=== PATIENT | male | born 1960 | race Caucasian/White ===

== ENCOUNTER 2018-06-29 12:48 | Emergency (ER) | payer BC ==
[~2018-06-29] VITALS: Ht 175.3 cm; Wt 88.5 kg
[~2018-06-29 12:48] MED LIST: ALEVE220 MG PO; AMOXICILLIN 50500 MG PO; AUGMENTIN PO; BENADRYL25 MG PO; DILAUDID 2 MG TA2 MG PO; GUMMI BEAR MUL1 EAC1 PO; LITE COAT ASPI325 MG PO; LOMOTIL TABLET1 EACH PO; NORCO 5-325 TA1 EACH PO; PERCOCET PO; ROXANOL T PO; TRAMADOL 50 MG50 MG PO; UNICOMPLEX M TA1 TA1 PO
[2018-06-29] MEDS ORDERED: PRILOSEC 10MG C10 MG PO (13:10)
[2018-06-29 13:40] LABS: URINE BILIRUBIN NEGATIVE (Negative); URINE BLOOD NEGATIVE (Negative); URINE CLARITY CLEAR; URINE COLOR YELLOW; URINE GLUCOSE-RANDOM* NEGATIVE (Negative); URINE KETONES NEGATIVE (Negative); URINE LEUKOCYTES-REFLEX NEGATIVE (Negative); URINE NITRITE-REFLEX NEGATIVE (Negative); URINE PROTEIN (DIPSTICK) NEGATIVE (Negative); URINE UROBILINOGEN 0.2 E.U./dl (0.2-1.0)
[2018-06-29 13:51] LABS: ABSOLUTE NEUTROPHILS 7.3 thou/uL (1.4-8.2); HEMATOCRIT 49.5 % (42.0-52.0); HEMOGLOBIN 17.3 gm/dL (14.0-18.0); LYMPHOCYTES 10.2 % (24.0-44.0); MCH 31.3 pg (26.0-34.0); MCV 89.5 fL (80.0-100.0); MONOCYTES 7.3 % (1.0-8.0); POLYS 80.5 % (36.0-66.0); RBC 5.54 mil/uL (4.50-6.00); RDW 13.1 % (10.5-14.5); WBC 9.1 thou/uL (4.0-11.0)
[2018-06-29 13:52] LABS: PLATELET COUNT 171 thou/uL (150-400)
[2018-06-29 13:59] LABS: CALCIUM 9.2 mg/dL (8.5-10.1); CREATININE 0.9 mg/dL (0.7-1.3); POTASSIUM 4.7 mmol/L (3.5-5.1)
[2018-06-29 14:05] LABS: ALBUMIN 4.2 g/dL (3.4-5.0); TOTAL BILIRUBIN 0.6 mg/dL (<0.1-1.0); TOTAL PROTEIN 7.9 g/dL (6.4-8.2)
[2018-06-29 15:31] VITALS: BP 140/93
== END 2018-06-29 15:32 | disposition home or self-care (01) ==
LOC: ER 12:48
PROVIDERS: Nurse Practitioner Family
DX: R53.83 Other fatigue (principal); R25.2 Cramp and spasm; R51 Headache; R53.1 Weakness; R10.9 Unspecified abdominal pain

== ENCOUNTER 2018-08-26 09:40 | Emergency (ER) | payer BC ==
[~2018-08-26] VITALS: Ht 172.7 cm; Wt 95.3 kg
[~2018-08-26 09:40] MED LIST changes: +PRILOSEC 10MG C10 MG PO
[2018-08-26 10:05] LABS: ABSOLUTE NEUTROPHILS 7.9 thou/uL (1.4-8.2); EOSINOPHILS 1.1 % (0.0-3.0); HEMATOCRIT 50.1 % (42.0-52.0); HEMOGLOBIN 17.4 gm/dL (14.0-18.0); LYMPHOCYTES 11.3 % (24.0-44.0); MCH 31.4 pg (26.0-34.0); MCHC 34.7 g/dL (28.0-37.0); MCV 90.3 fL (80.0-100.0); MONOCYTES 6.6 % (1.0-8.0); PLATELET COUNT 263 thou/uL (150-400); RBC 5.55 mil/uL (4.50-6.00); WBC 9.9 thou/uL (4.0-11.0)
[2018-08-26 10:13] LABS: CALCIUM 9.2 mg/dL (8.5-10.1); POTASSIUM 4.2 mmol/L (3.5-5.1)
[2018-08-26 10:19] LABS: ALBUMIN 4.2 g/dL (3.4-5.0); TOTAL BILIRUBIN 0.6 mg/dL (<0.1-1.0); TOTAL PROTEIN 7.9 g/dL (6.4-8.2)
--- NOTE | 2018-08-26 10:54 | EKG ---
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 : 1960 Requested By: Ruben Mcekon Order Number: [id number] MD: Pete Peng Measurements Intervals [place] Rate: 97 P: 74 DC: 166 QRS: -27 QRSD: 106 T: 33 QT: 360 QTc: 458 Interpretive Statements Sinus rhythm Borderline left axis deviation RSR' in V1 or V2, right VCD Compared to ECG 07/12/2017 12:27:44 No significant change was found Electronically Signed On 08-26-2018 10:54:03 [employer] by Pete Peng [email or web address] <ELECTRONICALLY SIGNED> By: Pete Peng MD, [facility] 08/26/18 1054 0950 9 Pete Peng MD, FACC /EPI
[2018-08-26] MEDS ORDERED: PROTONIX40 MG PO (11:45)
[2018-08-26] MEDS ORDERED: CARAFATE1 GM PO (11:45)
[2018-08-26 12:49] VITALS: BP 123/86
== END 2018-08-26 12:53 | disposition home or self-care (01) ==
LOC: ER 09:40
PROVIDERS: Emergency Medicine
DX: K29.70 Gastritis, unspecified, without bleeding (principal); Z90.49 Acquired absence of other specified parts of digestive tract; F17.210 Nicotine dependence, cigarettes, uncomplicated; Z88.1 Allergy status to other antibiotic agents; Z88.5 Allergy status to narcotic agent

== ENCOUNTER 2018-11-19 10:30 | Emergency (ER) | payer BC ==
[~2018-11-19] VITALS: Ht 175.3 cm; Wt 95.3 kg
[~2018-11-19 10:30] MED LIST changes: +CARAFATE1 GM PO; +PROTONIX40 MG PO
[2018-11-19 11:12] LABS: BASOPHILS 1.3 % (0.0-2.0); EOSINOPHILS 1.2 % (0.0-3.0); HEMATOCRIT 48.1 % (42.0-52.0); LYMPHOCYTES 13.7 % (24.0-44.0); MCH 31.4 pg (26.0-34.0); MCHC 35.3 g/dL (28.0-37.0); MCV 88.9 fL (80.0-100.0); MONOCYTES 6.7 % (1.0-8.0); PLATELET COUNT 258 thou/uL (150-400); POLYS 77.1 % (36.0-66.0); RBC 5.41 mil/uL (4.50-6.00); RDW 12.8 % (10.5-14.5); WBC 6.4 thou/uL (4.0-11.0)
[2018-11-19 11:20] LABS: CALCIUM 9.3 mg/dL (8.5-10.1); CREATININE 0.8 mg/dL (0.7-1.3); POTASSIUM 4.3 mmol/L (3.5-5.1)
[2018-11-19 11:25] LABS: ALBUMIN 4.4 g/dL (3.4-5.0); TOTAL BILIRUBIN 0.5 mg/dL (<0.1-1.0); TOTAL PROTEIN 7.8 g/dL (6.4-8.2)
[2018-11-19 12:25] LABS: URINE BILIRUBIN NEGATIVE (Negative); URINE BLOOD NEGATIVE (Negative); URINE CLARITY CLEAR; URINE COLOR YELLOW; URINE GLUCOSE-RANDOM* NEGATIVE (Negative); URINE KETONES NEGATIVE (Negative); URINE LEUKOCYTES-REFLEX NEGATIVE (Negative); URINE NITRITE-REFLEX NEGATIVE (Negative); URINE PROTEIN (DIPSTICK) NEGATIVE (Negative); URINE SPECIFIC GRAVITY <= 1.005 (1.005-1.035); URINE UROBILINOGEN 0.2 E.U./dl (0.2-1.0)
[2018-11-19] MEDS ORDERED: ULTRAM 50MG TAB50 MG PO (12:42)
[2018-11-19] MEDS ORDERED: ONDANSETRON HCL4 M2 PO (12:42)
[2018-11-19] MEDS ORDERED: NORCO 10-325 T1 EACH PO (13:00)
[2018-11-19 13:11] VITALS: BP 145/92
== END 2018-11-19 13:30 | disposition home or self-care (01) ==
LOC: ER 10:30
PROVIDERS: Physician Assistant
DX: R10.32 Left lower quadrant pain (principal); Z90.49 Acquired absence of other specified parts of digestive tract; F17.210 Nicotine dependence, cigarettes, uncomplicated; Z88.1 Allergy status to other antibiotic agents; Z88.5 Allergy status to narcotic agent

== ENCOUNTER 2019-03-15 11:28 | Emergency (ER) | payer BC ==
[~2019-03-15] VITALS: Ht 172.7 cm; Wt 90.7 kg
[~2019-03-15 11:28] MED LIST changes: +NORCO 10-325 T1 EACH PO; +ONDANSETRON HCL4 M2 PO; +ULTRAM 50MG TAB50 MG PO
[2019-03-15 12:04] LABS: HEMATOCRIT 45.4 % (42.0-52.0); HEMOGLOBIN 15.7 gm/dL (14.0-18.0); MCH 31.2 pg (26.0-34.0); MCHC 34.5 g/dL (28.0-37.0); MCV 90.2 fL (80.0-100.0); RBC 5.03 mil/uL (4.50-6.00)
[2019-03-15 12:09] LABS: ANION GAP 10 mmol/L (7-16); BUN 12 mg/dL (7-18); CALCIUM 9.1 mg/dL (8.5-10.1); CHLORIDE 102 mmol/L (98-107); CO2 26 mmol/L (21-32); CREATININE 0.9 mg/dL (0.7-1.3); GLUCOSE 94 mg/dL (74-106); POTASSIUM 3.6 mmol/L (3.5-5.1); SODIUM 138 mmol/L (136-145)
[2019-03-15 12:17] LABS: TROPONIN-I <0.06 ng/mL (<0.06)
[2019-03-15 12:59] VITALS: BP 155/87
== END 2019-03-15 13:00 | disposition home or self-care (01) ==
LOC: ER 11:28
PROVIDERS: Physician Assistant
DX: R00.0 Tachycardia, unspecified (principal); T40.2X5A Adverse effect of other opioids, initial encounter; F17.210 Nicotine dependence, cigarettes, uncomplicated; Z90.49 Acquired absence of other specified parts of digestive tract; Z88.1 Allergy status to other antibiotic agents; Z88.8 Allergy status to other drugs, medicaments and biological substances; Y92.89 Other specified places as the place of occurrence of the external cause

== ENCOUNTER → 2020-01-30 | Outpatient (CLI) | payer BC | LOC: CAT 12:21 → LABMALL 12:21 | PROVIDERS: ATTEND Family Medicine | DX: R91.1 Solitary pulmonary nodule (principal); R05 Cough ==

== ENCOUNTER → 2020-01-30 | Outpatient (CLI) | payer OTHER | LOC: CAT 13:05 | PROVIDERS: ATTEND Family Medicine | DX: R05 Cough (principal); R91.1 Solitary pulmonary nodule; Z90.49 Acquired absence of other specified parts of digestive tract ==

== ENCOUNTER 2020-05-05 09:27 | Inpatient (IN) | payer BC ==
[~2020-05-05] VITALS: Ht 175.3 cm; Wt 95.7 kg
[2020-05-05 09:30] VITALS: BP 138/94
[2020-05-05 10:31] LABS: HEMATOCRIT 47.3 % (42.0-52.0); HEMOGLOBIN 16.4 gm/dL (14.0-18.0); MCH 30.7 pg (26.0-34.0); MCHC 34.6 g/dL (28.0-37.0); MCV 88.7 fL (80.0-100.0); RBC 5.34 mil/uL (4.50-6.00); RDW 12.9 % (10.5-14.5); WBC 12.9 thou/uL (4.0-11.0)
[2020-05-05 10:40] LABS: ANION GAP 12 mmol/L (7-16); BUN 11 mg/dL (7-18); CALCIUM 9.8 mg/dL (8.5-10.1); CHLORIDE 103 mmol/L (98-107); CO2 24 mmol/L (21-32); CREATININE 1.1 mg/dL (0.7-1.3); GLUCOSE 114 mg/dL (74-106); POTASSIUM 4.1 mmol/L (3.5-5.1); SODIUM 139 mmol/L (136-145)
[2020-05-05 10:51] LABS: ALBUMIN 4.6 g/dL (3.4-5.0); DIRECT BILIRUBIN 0.2 mg/dL (<0.1-0.2); LIPASE 153 U/L (73-393); SGOT 24 U/L (15-37); SGPT 40 U/L (30-65); TOTAL BILIRUBIN 0.8 mg/dL (0.2-1.0); TOTAL PROTEIN 8.3 g/dL (6.4-8.2); TROPONIN-I <0.06 ng/mL (<0.06)
--- NOTE | 2020-05-05 12:21 | EKG ---
[facility] [place] [address] ELECTROCARDIOGRAM REPORT Name: RUBEN DIALLO Room #: REG M.R.#: [id number] Admission: 05/05/20 Attend Phys: Discharge: Date of : 64 Report #: [id number] THIS REPORT FOR: cc: Evan Chang MD, Neal A. MD Santiago, Patrick MD [facility] ~ THIS REPORT FOR: //name// [facility] ED Test Date: 2020-05-05 Test Time: 10:23:22 Pat Name: RUBEN DIALLO Department: Room: Gender: Rn Telehealth: kkbainbridge : 1960 Requested By: Dashawn Painter Order Number: [id number] MD: Eliecer Forbes Measurements Intervals [place] Rate: 107 P: 69 IL: 161 QRS: -72 QRSD: 107 T: 10 QT: 346 QTc: 462 Interpretive Statements Sinus tachycardia Left axis deviation RSR' in V1 or V2, right VCD or RVH Compared to ECG 03/15/2019 11:34:29 Left-axis deviation now present Right ventricular hypertrophy now present Myocardial infarct finding no longer present Electronically Signed On 05-05-2020 12:21:09 CDT by Eliecer Forbes [email or web address] <ELECTRONICALLY SIGNED> By: Eliecer Forbes MD, FAC 05/05/20 1221 1023 1023 Eliecer Forbes MD, FAC /EPI
[2020-05-05 13:41] VITALS: BP 139/95
[2020-05-05 14:43] VITALS: BP 129/87
[2020-05-05 15:30] VITALS: BP 140/86
--- NOTE | 2020-05-05 16:21 | NUR ---
PT ADMITTED TO ROOM 442 AT APPROX 15:30 PT ALERT XS 4 NO PAIN NO RESP DISTRESS. NO O2 V.S 98.5 18 110 140/86 O2 SAT 97% RA. WEIGHT = 211 HEIGHT =5'9" SKIN ASSESSMENT COMPLETED. NO OPEN SKIN ISSUES HAS SCAR TO ABD.
[2020-05-05 19:35] VITALS: BP 128/94
--- NOTE | 2020-05-06 02:57 | NUR ---
PT WAS LYING ON HIS BED TALKING ON THE PHONE AT THE START OF SHIFT.PT C/O GEN AD PAIN,MANAGED WITH MED.PT UP ADLIB IN HIS ROOM.PT STILL NPO AT THIS TIME.PT APPEARS TO BE SLEEPING ON HIS BED AT THIS TIME.CALL LIGHT WITHIN REACH.
[2020-05-06 05:28] LABS: HEMATOCRIT 44.9 % (42.0-52.0); HEMOGLOBIN 15.5 gm/dL (14.0-18.0); MCHC 34.4 g/dL (28.0-37.0); MCV 89.9 fL (80.0-100.0); RDW 12.9 % (10.5-14.5); WBC 10.2 thou/uL (4.0-11.0)
[2020-05-06 05:34] LABS: CALCIUM 8.4 mg/dL (8.5-10.1); POTASSIUM 4.2 mmol/L (3.5-5.1)
[2020-05-06 08:00] VITALS: BP 130/83
--- NOTE | 2020-05-06 08:46 | NUR ---
cm completed initial assessment to discuss d/c planning. pt lives at home alone, alert and oriented. pt is employed, drives a vehicle, independent w/adls. pt stated he has good community support. pt has 0 dmes. pt denied hx w/snf or hh. there are no anticipated needs from cm. cm to cont to follow to help as needed.
--- NOTE | 2020-05-06 13:23 | NUR ---
Assumed care of pt at 0700. Pt a&ox4. KUB this am. Diet advanced to CL. Up ad hamilton. Denies pain. IVF infusing. Call light within reach. Will continue to monitor.
[2020-05-06 16:00] VITALS: BP 133/69
[2020-05-06 19:50] VITALS: BP 125/71
--- NOTE | 2020-05-07 07:16 | NUR ---
PT DID WELL THRO THE NOC. UP AD POLI.S/L DUE TO GOOD ORAL INTAKE. DENIES PAIN. REPORTS MULTIPLE SMALL LOOSE STOOLS. ABDOMEN WITH BS+. TOLERATING FULL LIQUIDS THRO NOC AND ADVANCED TO FIBER RESTRICTED.
[2020-05-07 07:42] VITALS: BP 109/69
--- NOTE | 2020-05-07 09:18 | NUR ---
Assumed care of pt at 0700. Pt a&ox4. Denies pain. Tolerated soft-diet well. Up ad hamilton. Pt will discharge home. Call light within reach.
[2020-05-07 09:20] VITALS: BP 109/69
[2020-05-07 16:00] VITALS: BP 149/90
[2020-05-07 20:00] VITALS: BP 144/93
[2020-05-07 21:36] VITALS: BP 79/34
[2020-05-08 04:00] VITALS: BP 125/71
--- NOTE | 2020-05-08 04:10 | NUR ---
PT DENIED PAIN SO FAR.NO COMPLAINTS OF N/V.PT UP ADLIB IN HIS ROOM.PT RECEIVED HIS FIRST DOSE OF PEPCID,PT TOLERATED WELL.PT LOOKING FORWARD TO BE DC'D LATER IN THE DAY.CALL LIGHT WITHIN REACH.
[2020-05-08 07:49] VITALS: BP 109/69
--- NOTE | 2020-05-08 12:50 | NUR ---
Assumed care of pt. at 0700. Pt. is awake, alert, and ready for discharge. Orders were in place and physician was spoken with. Pt. wanted to speak with outpatient scheduling about a drawing of his calcium as an outpatient and was given the number and left a message. Pt. also needed a perscription for Pepcid sent to pharmacy. Physician contacted, perscription sent to preffered pharmacy. Pt. was discharged with all items and belongings.
== END 2020-05-08 09:32 | disposition home or self-care (01) | DRG 390 ==
LOC: ER 09:27 → EROBS 13:47 → 4S 13:47
PROVIDERS: Emergency Medicine; Surgery; ADMIT Family Medicine; ATTEND Family Medicine
DX: K56.609 Unspecified intestinal obstruction, unspecified as to partial versus complete obstruction (principal); K66.0 Peritoneal adhesions (postprocedural) (postinfection); Z88.6 Allergy status to analgesic agent; Z88.1 Allergy status to other antibiotic agents; Z87.891 Personal history of nicotine dependence; Z90.49 Acquired absence of other specified parts of digestive tract; Z85.038 Personal history of other malignant neoplasm of large intestine
CPT/HCPCS: 10195

== ENCOUNTER → 2020-05-08 | Outpatient (CLI) | payer OTHER | LOC: CAT 08:53 | PROVIDERS: ATTEND Family Medicine | DX: Z13.6 Encounter for screening for cardiovascular disorders (principal); I25.10 Atherosclerotic heart disease of native coronary artery without angina pectoris; E78.00 Pure hypercholesterolemia, unspecified ==

== ENCOUNTER 2020-05-16 17:34 | Emergency (ER) | payer BC ==
[~2020-05-16] VITALS: Ht 185.4 cm; Wt 95.3 kg
[2020-05-16 19:50] LABS: ABSOLUTE NEUTROPHILS 4.4 thou/uL (1.4-8.2); HEMATOCRIT 44.3 % (42.0-52.0); HEMOGLOBIN 15.1 gm/dL (14.0-18.0); LYMPHOCYTES 19.9 % (24.0-44.0); MCH 30.5 pg (26.0-34.0); MCV 89.8 fL (80.0-100.0); MONOCYTES 9.8 % (1.0-8.0); PLATELET COUNT 253 thou/uL (150-400); POLYS 66.3 % (36.0-66.0); RBC 4.94 mil/uL (4.50-6.00); RDW 12.8 % (10.5-14.5); WBC 6.6 thou/uL (4.0-11.0)
[2020-05-16 20:01] LABS: CALCIUM 9.3 mg/dL (8.5-10.1); CREATININE 0.9 mg/dL (0.7-1.3)
[2020-05-16 20:08] LABS: ALBUMIN 4.4 g/dL (3.4-5.0); TOTAL BILIRUBIN 0.7 mg/dL (0.2-1.0)
[2020-05-16 20:16] LABS: URINE BILIRUBIN NEGATIVE (Negative); URINE BLOOD NEGATIVE (Negative); URINE COLOR YELLOW; URINE GLUCOSE-RANDOM* NEGATIVE (Negative); URINE KETONES NEGATIVE (Negative); URINE LEUKOCYTES-REFLEX NEGATIVE (Negative); URINE NITRITE-REFLEX NEGATIVE (Negative); URINE PROTEIN (DIPSTICK) NEGATIVE (Negative); URINE SPECIFIC GRAVITY 1.025 (1.005-1.035); URINE UROBILINOGEN 0.2 E.U./dl (0.2-1.0)
[2020-05-16 20:17] LABS: URINE CLARITY CLOUDY
[2020-05-16] MEDS ORDERED: LIDOCAINE VISC100 ML PO (21:30)
[2020-05-16 21:33] VITALS: BP 143/69
== END 2020-05-16 21:46 | disposition home or self-care (01) ==
LOC: ER 17:34
PROVIDERS: Physician Assistant
DX: R10.9 Unspecified abdominal pain (principal); R14.0 Abdominal distension (gaseous); F17.210 Nicotine dependence, cigarettes, uncomplicated; Z79.899 Other long term (current) drug therapy; Z88.1 Allergy status to other antibiotic agents; Z88.5 Allergy status to narcotic agent

== ENCOUNTER 2020-08-09 10:02 | Emergency (ER) | payer BC ==
[~2020-08-09] VITALS: Ht 172.7 cm; Wt 92.1 kg
[~2020-08-09 10:02] MED LIST changes: +LIDOCAINE VISC100 ML PO
[2020-08-09] MEDS ORDERED: ATORVASTATIN CA10 MG PO (10:15)
[2020-08-09 10:52] LABS: ABSOLUTE NEUTROPHILS 8.9 thou/uL (1.4-8.2); BASOPHILS 0.6 % (0.0-2.0); HEMATOCRIT 54.5 % (42.0-52.0); HEMOGLOBIN 18.5 gm/dL (14.0-18.0); MCH 30.3 pg (26.0-34.0); MCV 89.2 fL (80.0-100.0); MONOCYTES 7.5 % (1.0-8.0); PLATELET COUNT 322 thou/uL (150-400); POLYS 81.9 % (36.0-66.0); RBC 6.11 mil/uL (4.50-6.00); WBC 10.8 thou/uL (4.0-11.0)
[2020-08-09 11:00] LABS: CREATININE 1.4 mg/dL (0.7-1.3); POTASSIUM 5.1 mmol/L (3.5-5.1)
[2020-08-09 11:06] LABS: TOTAL BILIRUBIN 0.8 mg/dL (0.2-1.0); TOTAL PROTEIN 9.2 g/dL (6.4-8.2)
[2020-08-09 12:37] LABS: URINE BILIRUBIN NEGATIVE (Negative); URINE BLOOD NEGATIVE (Negative); URINE CLARITY CLEAR; URINE COLOR YELLOW; URINE GLUCOSE-RANDOM* NEGATIVE (Negative); URINE KETONES NEGATIVE (Negative); URINE LEUKOCYTES-REFLEX NEGATIVE (Negative); URINE NITRITE-REFLEX NEGATIVE (Negative); URINE PROTEIN (DIPSTICK) TRACE (Negative); URINE UROBILINOGEN 0.2 E.U./dl (0.2-1.0)
[2020-08-09] MEDS ORDERED: ZOFRAN ODT4 MG PO (13:12)
[2020-08-09] MEDS ORDERED: LEVSIN-SL0.125 MG PO (13:12)
[2020-08-09 13:51] VITALS: BP 129/87
--- NOTE | 2020-08-11 16:03 | EKG ---
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 : 1960 Requested By: Inocencio Smith Order Number: [id number] MD: Eliecer Forbes Measurements Intervals [place] Rate: 124 P: 117 OR: 176 QRS: -78 QRSD: 102 T: 25 QT: 310 QTc: 446 Interpretive Statements Sinus tachycardia with irregular rate RSR' in V1 or V2, right VCD or RVH Inferior infarct, old Compared to ECG 05/05/2020 10:23:22 Myocardial infarct finding now present Left-axis deviation no longer present Electronically Signed On 08-11-2020 16:03:36 [employer] by Eliecer Forbes [email or web address] <ELECTRONICALLY SIGNED> By: Eliecer Forbes MD, [facility] 08/11/20 1603 1013 1013 Eliecer Forbes MD, [facility] /EPI
== END 2020-08-09 14:46 | disposition home or self-care (01) ==
LOC: ER 10:02
PROVIDERS: Emergency Medicine
DX: K52.9 Noninfective gastroenteritis and colitis, unspecified (principal); Z20.828 Contact with and (suspected) exposure to other viral communicable diseases; E86.0 Dehydration; Z79.899 Other long term (current) drug therapy; Z88.1 Allergy status to other antibiotic agents; Z88.6 Allergy status to analgesic agent; Z87.891 Personal history of nicotine dependence; Z90.49 Acquired absence of other specified parts of digestive tract

== ENCOUNTER 2020-11-02 13:18 | Emergency (ER) | payer BC ==
[~2020-11-02] VITALS: Ht 175.3 cm; Wt 92.5 kg
[~2020-11-02 13:18] MED LIST changes: +ATORVASTATIN CA10 MG PO; +LEVSIN-SL0.125 MG PO; +ZOFRAN ODT4 MG PO
[2020-11-02 13:56] LABS: ABSOLUTE NEUTROPHILS 5.9 thou/uL (1.4-8.2); BASOPHILS 1.2 % (0.0-2.0); EOSINOPHILS 0.8 % (0.0-3.0); HEMATOCRIT 45.3 % (42.0-52.0); HEMOGLOBIN 15.2 gm/dL (14.0-18.0); LYMPHOCYTES 13.3 % (24.0-44.0); MCHC 33.6 g/dL (28.0-37.0); MCV 89.3 fL (80.0-100.0); MONOCYTES 7.5 % (1.0-8.0); PLATELET COUNT 263 thou/uL (150-400); POLYS 77.2 % (36.0-66.0); RBC 5.07 mil/uL (4.50-6.00); RDW 12.9 % (10.5-14.5); WBC 7.7 thou/uL (4.0-11.0)
[2020-11-02 14:04] LABS: CALCIUM 8.9 mg/dL (8.5-10.1); CREATININE 1.1 mg/dL (0.7-1.3); POTASSIUM 4.3 mmol/L (3.5-5.1)
[2020-11-02 14:10] LABS: TOTAL BILIRUBIN 0.7 mg/dL (0.2-1.0); TOTAL PROTEIN 7.5 g/dL (6.4-8.2)
[2020-11-02 14:18] LABS: URINE BILIRUBIN NEGATIVE (Negative); URINE BLOOD NEGATIVE (Negative); URINE CLARITY CLEAR; URINE COLOR YELLOW; URINE GLUCOSE-RANDOM* NEGATIVE (Negative); URINE KETONES NEGATIVE (Negative); URINE LEUKOCYTES-REFLEX NEGATIVE (Negative); URINE NITRITE-REFLEX NEGATIVE (Negative); URINE PROTEIN (DIPSTICK) NEGATIVE (Negative); URINE SPECIFIC GRAVITY <= 1.005 (1.005-1.035); URINE UROBILINOGEN 0.2 E.U./dl (0.2-1.0)
[2020-11-02] MEDS ORDERED: LIDOCAINE VISC100 ML PO (15:03)
[2020-11-02] MEDS ORDERED: CARAFATE 1 GM TA1 G1 PO (15:03)
[2020-11-02 15:07] VITALS: BP 139/92
== END 2020-11-02 15:07 | disposition home or self-care (01) ==
LOC: ER 13:18
PROVIDERS: Emergency Medicine
DX: K29.70 Gastritis, unspecified, without bleeding (principal); Z90.49 Acquired absence of other specified parts of digestive tract; Z79.899 Other long term (current) drug therapy; Z87.891 Personal history of nicotine dependence; Z88.1 Allergy status to other antibiotic agents; Z88.5 Allergy status to narcotic agent